=== PATIENT | female | born 1950 | race Caucasian/White ===

== ENCOUNTER 2016-03-06 13:00 | Emergency (ER) | payer BC ==
[2016-03-06 13:12] VITALS: BP 201/95
== END 2016-03-06 13:19 | disposition left against medical advice (07) ==
LOC: ER 13:00
DX: Z53.21 Procedure and treatment not carried out due to patient leaving prior to being seen by health care provider (principal)

== ENCOUNTER 2016-08-31 01:22 | Emergency (ER) | payer BC ==
[2016-08-31] MEDS ORDERED: METHYLPREDNISOLONE SOD SUCC/PF 40 MG/ML VIAL IM ONE (02:22)
--- NOTE | 2016-08-31 02:23 | ERNOTE ---
Medical Problem HPI - General Time Seen by Provider: 08/31/16 02:20 Source: patient Exam Limitations: no limitations - Immun/Allergies/Home Medications Immunizations: IMMUNIZATION HX History of Influenza Vaccine No Hx Pneumococcal Vaccination No Allergies/Adverse Reactions: Allergies atenolol Allergy (Mild, Verified 04/23/15 22:00) BRADYCARDIA paroxetine [Paroxetine] Adverse Reaction (Mild, Verified 04/23/15 22:00) LETHERGY Home Medications: HOME MEDICATIONS metFORMIN HCL [Glucophage Xr] 500 mg PO 1800 01/25/14 [Last Taken Unknown] Levothyroxine Sodium [Synthroid] 88 mcg PO DAILY 09/20/14 [Last Taken Unknown] Lisinopril [Zestril] 20 mg PO DAILY 09/20/14 [Last Taken Unknown] Metoprolol Tartrate [Lopressor] 25 mg PO BID 09/20/14 [Last Taken Unknown] Azithromycin [Zithromax] 250 mg PO DAILY #6 tablet 04/24/15 [Last Taken Unknown] Ranitidine HCl [Zantac] 300 mg PO HS #30 tab 04/24/15 [Last Taken Unknown] Cephalexin Monohydrate [Keflex] 500 mg PO QID #40 cap 08/31/16 [Last Taken Unknown] - History of Present History Narrative: This patient presents to the emergency room for having been stung by a bee 24 hours ago. Her right hand is swollen red painful and she is unable to close her hand. Patient absolutely refuses any IV medication in the ER. She has taken no medication for it she has just been icing her right hand. Patient states she usually gets stung it swells up a bit then it goes away this time the swelling has not gone away. Review of Systems - Review of Systems Constitutional: Present: no symptoms reported EYE: Present: no symptoms reported ENT: Present: no symptoms reported Respiratory: Present: no symptoms reported Cardiology: Present: no symptoms reported Musculoskeletal: Present: other - right hand is swollen and red and shiny. She has been icing it there is a small amount of streaking of redness on the volar aspect of the wrist moving proximally. The site of the Stinger which was removed in the palm is noted - Patient's Past Medical History Patient History - Medical: Diabetes Type 2, GERD, Hypothyroidism Patient History - Cardiac/Respiratory: Hypertension Patient History - Cancer: Surgical Treatment Patient History - Surgical Procedures: Cancer Surgery Patient History - Other: None - Family History Mother Family History - Medical: No pertinent hx - Social History Living Situations: spouse Abuse History: No History of abuse Psych History: No pertinent hx Alcohol Use: none Drug Use: none - Immunizations Hx Pneumococcal Vaccination: No History of Influenza Vaccine: No Plan - Plan Plan: Chin has cellulitis of her right hand, the cellulitis happens to be moving proximally. She is fortunate not to have been anaphylactic to bee stings she does have a cellulitis of her right hand. She absolutely refuses any IVs started on her. Therefore this examiner has no choice but to treat her with Rocephin IM and Solu-Medrol IM and send her home with some Keflex to follow up with her primary care doctor. Departure - Departure Clinical Impression: Cellulitis of right hand Disposition: Home self-care Condition: Good Instructions: Cellulitis, Adult, [id number] Referrals: Shannon Johnson DO [Primary Care Provider] - Prescriptions: Cephalexin Monohydrate [Keflex] 500 mg PO QID #40 cap
[2016-08-31] MEDS ORDERED: METHYLPREDNISOLONE SOD SUCC/PF 125 MG/2 ML VIAL ONE (02:26)
[2016-08-31 02:57] VITALS: BP 168/84
== END 2016-08-31 02:32 | disposition home or self-care (01) ==
LOC: ER 01:22
DX: L03.113 Cellulitis of right upper limb (principal); W57.XXXA Bitten or stung by nonvenomous insect and other nonvenomous arthropods, initial encounter

== ENCOUNTER 2019-12-08 15:20 | Observation (INO) ==
[2019-12-08] MEDS ORDERED: DILTIAZEM HCL 5 MG/ML VIAL IV ONE (16:48)
[2019-12-08] MEDS ORDERED: DILTIAZEM HCL 125 MG in DEXTROSE 5 % IN WATER 100 ML IV PRN ×2 (16:49)
--- NOTE | 2019-12-08 17:16 | HP ---
Chief Complaint - Chief Complaint Date of Service: 12/08/19 Time of Service: 16:10 Chief Complaint: Palpitations x1 day History of Present Illness: 69-year-old female with a past medical history of hypertension, diabetes mellitus type 2, anxiety, hyperlipidemia, hypothyroidism, SANIA on CPAP, GERD, constipation presents from home with complaints of palpitations that began this morning. She was seen in my office this afternoon and states her symptoms began this morning and have been persistent ever since. Her heart rate at home have been ranging in the low was around 110. She has associated symptoms of lightheadedness but denies chest pain or shortness of breath. In my office heart rate was ranging 102-120s. I sent her for an EKG and it showed A. fib with RVR and a heart rate of the 140s. I center to the inpatient hernandez for direct admission, as observation. Medical History (Last Reviewed 12/08/19 @ 17:42 by Scarlett Tesfaye RN) White coat syndrome with diagnosis of hypertension (Chronic) Onset Date: Unknown Post-menopausal bleeding (Chronic) Onset Date: 2013 SANIA on CPAP (Chronic) Onset Date: 08/2016 Hypothyroidism (Chronic) Onset Date: Unknown Hyperlipidemia (Chronic) Onset Date: 2017 Hemorrhoids (Chronic) Onset Date: Unknown GERD (gastroesophageal reflux disease) (Chronic) Onset Date: 2010 Essential hypertension (Chronic) Onset Date: Unknown Diabetes mellitus type 2, uncontrolled (Chronic) Onset Date: 2012 Constipation (Chronic) Onset Date: 2001 Cervical polyp (Resolved) Onset Date: 1999 Candidiasis of vulva and vagina (Chronic) Onset Date: 2016 Calculus of kidney (Resolved) Onset Date: 2004 Bradycardia (Resolved) Onset Date: 2010 Bladder cancer (Resolved) Onset Date: 2012 2012, 2015 Postmenopausal atrophic vaginitis (Chronic) Onset Date: 2016 Anxiety (Chronic) Onset Date: 2010 Abnormal ultrasound of endometrium (Resolved) Onset Date: 2013 Surgical History: Surgical History (Last Updated 12/08/19 @ 17:46 by Scarlett Tesfaye RN) History of back surgery History of eyelid surgery 2015 History of wisdom tooth extraction H/O cardiac catheterization Onset Date: 2010 H/O cystoscopy Onset Date: 2005 2005; 02/2018 at urology H/O dilation and curettage Onset Date: 2005 H/O laminectomy Onset Date: 1995 H/O tubal ligation Onset Date: 1979 History of hysteroscopy Onset Date: 2005 Normal colonoscopy Onset Date: 2001 2001, 2010 egd with biopsy Onset Date: 2010 Bagan-olaf test negative gastric mucosa mild chemical irritation transurethral resection of bladder tumor Onset Date: 2012 2012, 2014 [facility] Urology-left unilateral stent placement, intravesical chemo Family History: Family History (Last Updated 12/08/19 @ 17:57 by Scarlett Tesfaye RN) Father Cancer, Onset Age: 47 esophageal cancer Mother Cancer, Onset Age: 62 leukemia Brother Heart problem Macular degeneration DM (diabetes mellitus), type 2 Social History: (Last Reviewed 12/08/19 @ 17:58 by Scarlett Tesfaye RN) Social History: Marital status: lives independently: Yes household members: spouse current occupational status: employed 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 Absent: Chest Pain Misc: All systems neg except as marked Immunizations: IMMUNIZATION HX Immunizations Up to Date Yes History of Influenza Vaccine Yes Hx Pneumococcal Vaccination Yes Allergies/Adverse Reactions: Allergies Allergy/AdvReac Type Severity Reaction Status Date / Time amlodipine Allergy Intermediate swelling Verified 12/08/19 16:19 atenolol Allergy Mild BRADYCARDIA Verified 12/08/19 16:19 paroxetine [Paroxetine] AdvReac Mild LETHERGY Verified 12/08/19 16:19 Home Medications: HOME MEDICATIONS multivitamin 1 tab PO DAILY 09/05/17 [Last Taken Unknown] hydrochlorothiazide 25 mg tablet 25 mg PO DAILY #90 tab 01/12/19 [Last Taken Unknown] lisinopril 20 mg tablet 20 mg PO BID #180 tab 02/07/19 [Last Taken Unknown] levothyroxine 88 mcg tablet 88 mcg PO DAILY #90 tab 02/17/19 [Last Taken Unknown] triamcinolone acetonide 0.5 % topical cream See Rx Instructions .ROUTE .COMPLEX #15 unknown measurement unit code: gram 06/02/19 [Last Taken Unknown] omeprazole 10 mg capsule,delayed release See Rx Instructions .ROUTE .COMPLEX #90 unknown measurement unit code: capsule 08/12/19 [Last Taken Unknown] metformin 500 mg tablet,extended release 24 hr 500 mg PO BID #180 tab 11/08/19 [Last Taken Unknown] Exam - Exam Constitutional: Present: Alert, Cooperative, Well developed, Well nourished, No distress, Elderly ENT Exam: Present: hearing grossly normal Eye Exam: bilateral eye: normal inspection Neck: Present: non-tender, supple. Absent: lymphadenopathy (R), lymphadenopathy (L) Back Exam: Present: normal inspection Respiratory: Present: lungs clear, no respiratory distress, no accessory muscle use, wheezing, No wheezing. Absent: accessory muscle use, crackles, rhonchi Cardiovascular/Chest: Present: normal peripheral pulses, no murmur, irregularly irregular Peripheral Pulses: dorsalis-pedis (R): 1+, dorsalis-pedis (L): 1+ Abdomen: Present: Normal bowel sounds, soft, nontender Extremity: Present: no pedal edema Skin Exam: Present: normal color, warm/dry Neurologic: Present: alert, normal mood/affect Appearance: Present: appropriate appearance, appropriate insight, impaired insight Eye contact: Present: cooperative Thoughts: Present: normal thought pattern, normal mood /affect Assessment/Plan - Narrative Narrative: 69-year-old female with a past medical history of hypertension, diabetes mellitus type 2, anxiety, hyperlipidemia, hypothyroidism, SANIA on CPAP, GERD, constipation presents from home with complaints of palpitations that began this morning. She was seen in my office this afternoon and states her symptoms began this morning and have been persistent ever since. Her heart rate at home have been ranging in the low was around 110. She has associated symptoms of lightheadedness but denies chest pain or shortness of breath. In my office heart rate was ranging 102-120s. I sent her for an EKG and it showed A. fib with RVR and a heart rate of the 140s. I center to the inpatient hernandez for direct admission, as observation. Her Yao-vasc score is 4, therefore she will be a candidate for anticoagulation. Plan #1 give Cardizem bolus of 20 mg #2 if heart rate is controlled with a bolus I will start her on a Cardizem drip 5 mg/h and titrate as needed #3 continuous telemetry #4 resume home medications #5 heart healthy diet - Assessment/Plan (1) Hypothyroidism Problem: Chronic Qualifiers: Hypothyroidism type: acquired Qualified Code(s): E03.9 - Hypothyroidism, unspecified (2) Hyperlipidemia Problem: Chronic Qualifiers: Hyperlipidemia type: unspecified Qualified Code(s): E78.5 - Hyperlipidemia, unspecified (3) GERD (gastroesophageal reflux disease) Problem: Chronic Qualifiers: Esophagitis presence: without esophagitis Qualified Code(s): K21.9 - Gastro-esophageal reflux disease without esophagitis (4) Essential hypertension Problem: Chronic (5) Diabetes mellitus type 2, uncontrolled Problem: Chronic (6) New onset atrial fibrillation Problem: Acute (7) Atrial fibrillation with rapid ventricular response Problem: Acute
[2019-12-08 17:31] LABS: Hematocrit 42.4 % (37.0-47.0); Hemoglobin 13.7 gm/dL (12.5-16.0); Mean Cell Volume 87.4 fl (78-100); Mean Corpuscular Hemoglobin 28.2 pg (27-31); Mean Corpuscular Hgb Conc 32.3 g/dl (32-36); Mean Platelet Volume 10.6 fl (8-12.5); Neutrophil # 4.8 K/mm3 (1.3-6.0); Platelet Count 248 K/mm3 (150-450); Red Blood Count 4.85 M/mm3 (4.2-5.4); Red Cell Distribution Width 13.4 % (11.5-14.0); White Blood Count 7.3 K/mm3 (4.0-10.5)
[2019-12-08 18:52] LABS: Albumin * 3.7 gm/dl (3.4-5.0); Anion Gap 16.6 mmol/L (6.8-13.8); BUN/Creatinine Ratio 18.6 (9.0-21.6); Bilirubin, Total 0.6 mg/dL (0.0-1.1); Ca. Corrected For Albumin 9.8 mg/dL (8.4-10.2); Calcium * 9.9 mg/dL (7.9-10.9); Carbon Dioxide 23.5 mmol/L (24-32.6); Potassium 4.1 mmol/L (3.4-4.6); Total Protein 7.9 gm/dL (6.2-8.2)
[2019-12-08] MEDS: LISINOPRIL 20 MG TABLET PO SCH (21:01)
[2019-12-09 06:15] LABS: Hemoglobin 13.8 gm/dL (12.5-16.0); Mean Cell Volume 87.1 fl (78-100); Mean Corpuscular Hemoglobin 28.6 pg (27-31); Mean Corpuscular Hgb Conc 32.9 g/dl (32-36); Neutrophil # 3.4 K/mm3 (1.3-6.0); Neutrophil % 53.1 % (42-75.0); Platelet Count 279 K/mm3 (150-450); Red Blood Count 4.82 M/mm3 (4.2-5.4); Red Cell Distribution Width 13.4 % (11.5-14.0); White Blood Count 6.4 K/mm3 (4.0-10.5)
[2019-12-09 06:28] LABS: Albumin * 3.2 gm/dl (3.4-5.0); Anion Gap 14.7 mmol/L (6.8-13.8); BUN/Creatinine Ratio 16.3 (9.0-21.6); Bilirubin, Total 0.5 mg/dL (0.0-1.1); Ca. Corrected For Albumin 9.7 mg/dL (8.4-10.2); Calcium * 9.4 mg/dL (7.9-10.9); Carbon Dioxide 25.1 mmol/L (24-32.6); Potassium 3.8 mmol/L (3.4-4.6)
[2019-12-09] MEDS ORDERED: LEVOTHYROXINE SODIUM 88 MCG TABLET PO SCH (07:00)
[2019-12-09] MEDS ORDERED: PANTOPRAZOLE SODIUM 20 MG TABLET.DR PO SCH (07:00)
[2019-12-09] MEDS ORDERED: MULTIVITAMINS 1 CAP CAPSULE PO SCH (09:00)
[2019-12-09] MEDS ORDERED: HYDROCHLOROTHIAZIDE 25 MG TABLET PO SCH (09:00)
[2019-12-09] MEDS ORDERED: APIXABAN 5 MG TABLET PO SCH (09:30)
[2019-12-09] MEDS ORDERED: DILTIAZEM HCL 120 MG CAP.SR.24H PO SCH (09:30)
[2019-12-09] MEDS ORDERED: DILTIAZEM HCL 180 MG CAP.SR.24H PO SCH (09:30)
[2019-12-09] MEDS: LISINOPRIL 20 MG TABLET PO SCH (09:36)
--- NOTE | 2019-12-09 10:29 | DS ---
(1) New onset atrial fibrillation Problem: Resolved (2) Hypothyroidism Problem: Chronic Qualifiers: Hypothyroidism type: acquired Qualified Code(s): E03.9 - Hypothyroidism, unspecified (3) Hyperlipidemia Problem: Chronic Qualifiers: Hyperlipidemia type: unspecified Qualified Code(s): E78.5 - Hyperlipidemia, unspecified (4) GERD (gastroesophageal reflux disease) Problem: Chronic Qualifiers: Esophagitis presence: without esophagitis Qualified Code(s): K21.9 - Gastro-esophageal reflux disease without esophagitis (5) Essential hypertension Problem: Chronic (6) Diabetes mellitus type 2, uncontrolled Problem: Chronic (7) Atrial fibrillation with rapid ventricular response Problem: Resolved Hospital Course: 69-year-old female with a past medical history of hypertension, diabetes mellitus type 2, anxiety, hyperlipidemia, hypothyroidism, SANIA on CPAP, GERD, constipation presents from home with complaints of palpitations that began this morning. She was seen in my office this afternoon and states her symptoms began this morning and have been persistent ever since. Her heart rate at home have been ranging in the low was around 110. She has associated symptoms of lightheadedness but denies chest pain or shortness of breath. In my office heart rate was ranging 102-120s. I sent her for an EKG and it showed A. fib with RVR and a heart rate of the 140s. I sent her to the inpatient her[facility] for direct admission, as observation. She was started on a Cardizem drip and her heart rate improved. I transitioned her to oral Cardizem. She subsequently converted back to normal sinus rhythm. EKG confirmed sinus rhythm. I will discontinue the Cardizem and resume her on her normal home medications. I would still like her to follow-up with cardiology and follow-up with me in 1 week. Procedures Performed: none Results and Findings: Lab Pending Results 12/08/19 17:26: WBC 7.3, RBC 4.85, Hgb 13.7, Hct 42.4, MCV 87.4, MCH 28.2, MCHC 32.3, RDW 13.4, Plt Count 248, MPV 10.6, Immature Gran % (Auto) 0.40, Immature Gran # (Auto) 0.03, Neutrophils % 65.0, Lymphocytes % 22.2, Monocytes % 8.7, Eosinophils % 3.0, Basophils % 0.7, Nucleated RBC % 0.0, Neutrophils # 4.8, Lymphocytes # 1.63, Monocytes # 0.6, Eosinophils # 0.2, Absolute Basophils 0.1 12/08/19 17:26: Sodium 137, Plasma Sodium 137, Potassium 4.1, Chloride 101, Carbon Dioxide 23.5 L, Anion Gap 16.6 H, BUN 18, Creatinine 0.97, Est GFR (Non- Af Amer) 61, BUN/Creatinine Ratio 18.6, Random Glucose 130 H, Calcium 9.9, Calcium Adj for Albumin 9.8, Total Bilirubin 0.6, AST 35, ALT 36, Alkaline Phosphatase 79, Total Protein 7.9, Albumin 3.7 12/08/19 17:26: Troponin I Less than 0.017 12/09/19 06:10: WBC 6.4, RBC 4.82, Hgb 13.8, Hct 42.0, MCV 87.1, MCH 28.6, MCHC 32.9, RDW 13.4, Plt Count 279, MPV 10.0, Immature Gran % (Auto) 0.30, Immature Gran # (Auto) 0.02, Neutrophils % 53.1, Lymphocytes % 32.3, Monocytes % 9.7 H, Eosinophils % 4.1 H, Basophils % 0.5, Nucleated RBC % 0.0, Neutrophils # 3.4, Lymphocytes # 2.06, Monocytes # 0.6, Eosinophils # 0.3, Absolute Basophils 0.0 12/09/19 06:10: Sodium 138, Plasma Sodium 139, Potassium 3.8, Chloride 102, Carbon Dioxide 25.1, Anion Gap 14.7 H, BUN 16, Creatinine 0.98, Est GFR (Non-Af Amer) 60, BUN/Creatinine Ratio 16.3, Random Glucose 150 H, Calcium 9.4, Calcium Adj for Albumin 9.7, Total Bilirubin 0.5, AST 26, ALT 34, Alkaline Phosphatase 73, Total Protein 7.0, Albumin 3.2 L Discharge Location: Home Disposition: Home self-care Condition: Stable Discharge Activity: Activity as tolerated Discharge Diet: Low salt Problem Oriented Discharge Instructions to Patient/Family: Bleeding Precautions When on Anticoagulant Therapy, Adult, Atrial Fibrillation, [id number] Additional Patient Instructions (free text): Follow up with [facility] cardiology Monday, December 16, 2019 at 10am with Lolly Yung [employer] DES[employer]. Follow up in the Coumadin Clinic at [facility] on Thursday at 11:30. Go to the screening station at the clinic. Once screened the Coumadin Clinic is in [place] [address]. Complete Home Medications List: Complete Home Medication List: multivitamin 1 tab PO DAILY 09/05/17 hydrochlorothiazide 25 mg tablet 25 mg PO DAILY #90 tab 01/12/19 lisinopril 20 mg tablet 20 mg PO BID #180 tab 02/07/19 levothyroxine 88 mcg tablet 88 mcg PO DAILY #90 tab 02/17/19 metformin 500 mg tablet,extended release 24 hr 500 mg PO BID #180 tab 11/08/19 Omeprazole 10 mg PO DAILY 12/08/19 Triamcinolone Acetonide [Kenalog 0.5% Cream] See Rx Instructions .ROUTE .COMPLEX PRN 12/08/19
[2019-12-09] MEDS ORDERED: DILTIAZEM HCL 60 MG TABLET PO SCH (14:30)
[2019-12-09] MEDS ORDERED: DILTIAZEM HCL 240 MG CAP.SR.24H PO SCH (14:30)
--- NOTE | 2019-12-09 15:31 | PN ---
Subjective - Date and Time Seen Date: 12/09/19 Time: 09:30 Subjective Narrative: She states she feels well today. She has intermittent episodes of increased heart rate. Objective - Review of Systems Generalized/Overall Review: Denies: Chills, Fever Respiratory: Denies: Shortness of Breath Cardiac: Reports: Palpitations. Denies: Chest Pain Abdominal: Denies: Abdominal Pain Misc: All systems neg except as marked - Vitals Vitals: Last Vital Signs Temp 36.4 C 12/09/19 10:28 Pulse 122 H 12/09/19 14:43 Resp 14 12/09/19 14:43 BP 122/68 12/09/19 14:43 Pulse Ox 96 12/09/19 14:43 - Abnormal Lab Findings Abnormal Lab Findings: Abnormal Lab Results 12/08/19 12/09/19 12/09/19 Range/Units 17:26 06:10 06:10 Monocytes % 9.7 H (0.0-9) % Eosinophils % 4.1 H (0.0-3.0) % Carbon Dioxide 23.5 L (24-32.6) mmol/L Anion Gap 16.6 H 14.7 H (6.8-13.8) mmol/L Random Glucose 130 H 150 H (70-110) mg/dL Albumin 3.2 L (3.4-5.0) gm/dl Assessment/Plan Plan Narrative: 69-year-old female with a past medical history of hypertension, diabetes mellitus type 2, anxiety, hyperlipidemia, hypothyroidism, SANIA on CPAP, GERD, constipation presents from home with complaints of palpitations that began this morning. She was seen in my office this afternoon and states her symptoms began this morning and have been persistent ever since. Her heart rate at home have been ranging in the low was around 110. She has associated symptoms of lightheadedness but denies chest pain or shortness of breath. In my office heart rate was ranging 102-120s. I sent her for an EKG and it showed A. fib with RVR and a heart rate of the 140s. I center to the inpatient her[facility]andez for direct admission, as observation. Her Yao-vasc score is 4, therefore she will be a candidate for anticoagulation. Plan #1 give Cardizem bolus of 20 mg #2 if heart rate is controlled with a bolus I will start her on a Cardizem drip 5 mg/h and titrate as needed #3 continuous telemetry #4 resume home medications #5 heart healthy diet - Problems/Diagnosis (1) New onset atrial fibrillation Problem: Acute (2) Hypothyroidism Problem: Chronic Qualifiers: Hypothyroidism type: acquired Qualified Code(s): E03.9 - Hypothyroidism, unspecified (3) Hyperlipidemia Problem: Chronic Qualifiers: Hyperlipidemia type: unspecified Qualified Code(s): E78.5 - Hyperlipidemia, unspecified (4) GERD (gastroesophageal reflux disease) Problem: Chronic Qualifiers: Esophagitis presence: without esophagitis Qualified Code(s): K21.9 - Gastro-esophageal reflux disease without esophagitis (5) Essential hypertension Problem: Chronic (6) Diabetes mellitus type 2, uncontrolled Problem: Chronic (7) Atrial fibrillation with rapid ventricular response Problem: Acute
[2019-12-09] MEDS ORDERED: WARFARIN SODIUM 5 MG TABLET PO SCH (17:00)
[2019-12-09 17:31] VITALS: BP 101/58
[2019-12-10] MEDS ORDERED: DILTIAZEM HCL 240 MG CAP.SR.24H PO SCH (09:00)
== END 2019-12-09 17:10 | disposition home or self-care (01) ==
LOC: CCFAL → MS 15:20 → RT 15:20
PROVIDERS: ADMIT Internal Medicine; ATTEND Internal Medicine